=== PATIENT | male | born 1980 | race African-American/Black ===

== ENCOUNTER 2017-08-18 06:04 | Emergency (ER) | payer OTHER ==
[~2017-08-18] VITALS: Ht 182.9 cm; Wt 83.6 kg
[2017-08-18 06:26] LABS: HEMOGLOBIN 14.2 G/DL (12.5-16.6); MCH 28.3 PG (29.0-34.0); MCV 85.8 FL (86-99); PLATELET COUNT 135 K/uL (156-360); RBC DIS.WIDTH-CV 12.6 % (11.8-14.6); RBC DIS.WIDTH-SD 39.8 % (39-53); RED BLOOD COUNT 5.01 M/uL (4.00-5.50)
[2017-08-18 06:37] LABS: CHLORIDE 104 mEq/L (99-109); POTASSIUM 3.9 mEq/L (3.7-5.4); SODIUM 139 mEq/L (136-147)
[2017-08-18 06:39] LABS: GLUCOSE 94 mg/dL (70-99)
[2017-08-18 06:43] LABS: CREATININE 1.2 mg/dL (0.6-1.3)
[2017-08-18 06:44] LABS: GFR ESTIMATE (CALCULATED) > 59 mL/min/ (58.99-99999); UREA NITROGEN (BUN) 15 mg/dL (9-23)
[2017-08-18 06:48] LABS: TROP-I INTERPRETATION NEGATIVE; TROPONIN-I < 0.01 ng/mL (0.0-0.30)
[2017-08-18] MEDS ORDERED: FLEXERIL10 MG PO (09:23)
[2017-08-18] MEDS ORDERED: NAPROSYN500 MG PO (09:23)
[2017-08-18 09:32] VITALS: BP 143/86
== END 2017-08-18 09:33 | disposition home or self-care (01) ==
LOC: EME 06:04
DX: S20.212A Contusion of left front wall of thorax, initial encounter (principal); M54.5 Low back pain; V68.5XXA Driver of heavy transport vehicle injured in noncollision transport accident in traffic accident, initial encounter; Y99.0 Civilian activity done for income or pay; Y92.410 Unspecified street and highway as the place of occurrence of the external cause
CPT/HCPCS: 71046; 80048; 84484; 85027; 93005; 99281; 99284